=== PATIENT | female | born 1990 | race Caucasian/White ===

== ENCOUNTER 2024-03-04 15:32 | Emergency (ER) | payer MEDICAID ==
[~2024-03-04] VITALS: Ht 160 cm; Wt 61.2 kg
[~2024-03-04 15:32] MED LIST: DOXYCYCLINE100 M2 PO; NKHM PO; PROTONIX40 MG PO; Tobradex 0.3-0.15 ML OPH; ULTRAM50 MG PO; ZITHROMAX Z PA250 MG PO
[2024-03-04] MEDS ORDERED: Ondansetron Hydrochloride 4 MG/2 ML VIAL IV ONE (16:10)
[2024-03-04] MEDS ORDERED: SODIUM CHLORIDE 0.9% 1,000 ML IV ONE (16:10)
[2024-03-04 16:26] LABS: HEMATOCRIT 38.6 % (37.0-47.0); MEAN CELL VOLUME 79.8 fl (81.0-99.0); MEAN CORPUSCULAR HGB 23.1 pg (27.0-31.0); MEAN PLATELET VOLUME 9.5 fl (9.6-12.3); PLATELET COUNT AUTOMATED 425 10*3/uL (130-400); RED BLOOD COUNT 4.84 10*6/uL (4.10-5.10); RED CELL DISTRI WIDTH 18.1 % (0-14.5); WHITE BLOOD COUNT 10.9 10*3/uL (4.8-10.8)
[2024-03-04 16:27] LABS: MANUAL DIFF REFLEX YES
[2024-03-04 16:47] LABS: BILIRUBIN 2+ (Negative); BLOOD 3+ (Negative); CLARITY Turbid (Clear); COLOR Red (Yellow); GLUCOSE Negative (Negative); KETONE Trace (Negative); LEUKO ESTERASE Trace (Negative); NITRITE Positive (Negative); UROBILINOGEN 0.2 E.U./dl (0.0-1.0)
[2024-03-04 16:49] LABS: BASOPHILS 1 % (0-1); TOTAL CELLS COUNTED 100 #CELLS
[2024-03-04 16:50] LABS: ALKALINE PHOSPHATASE 56 U/L (46-116); BUN 22 mg/dl (9-23); BURR CELLS FEW; CHLORIDE 112 mmol/L (98-107); PLATELET SUFFICIENCY HIGH (NORMAL); POTASSIUM 3.8 mmol/L (3.4-5.1); SCHISTOCYTES FEW; SGPT/ALT 16 U/L (5-49); TOTAL PROTEIN 8.5 gm/dL (6.0-8.0)
[2024-03-04 16:52] LABS: ROULEAUX SLIGHT
[2024-03-04 17:01] LABS: BACTERIA 4+
[2024-03-04 17:02] LABS: RBC TNTC rbc/hpf (0-2)
[2024-03-04] MEDS ORDERED: Ceftriaxone Sodium 1 GM/10 ML SYR IV ONE (17:10)
[2024-03-04] MEDS ORDERED: SEPTDS PO (18:53)
[2024-03-04] MEDS ORDERED: ONDANSETRON4 MG SL (18:53)
== END 2024-03-04 19:19 | disposition home or self-care (01) ==
LOC: ED 15:32
PROVIDERS: Physician Assistant Medical
DX: N39.0 Urinary tract infection, site not specified (principal); Z20.822 Contact with and (suspected) exposure to COVID-19; R11.2 Nausea with vomiting, unspecified; R19.7 Diarrhea, unspecified; D50.9 Iron deficiency anemia, unspecified; Z88.0 Allergy status to penicillin

== ENCOUNTER 2024-06-02 20:16 | Emergency (ER) | payer MEDICAID ==
[~2024-06-02] VITALS: Ht 162.5 cm; Wt 72.1 kg
[~2024-06-02 20:16] MED LIST changes: +ONDANSETRON4 MG SL; +SEPTDS PO
== END 2024-06-02 21:41 | disposition home or self-care (01) ==
LOC: ED 20:16
DX: Z00.01 Encounter for general adult medical examination with abnormal findings (principal); Z88.0 Allergy status to penicillin